=== PATIENT | male | born 1990 | race Caucasian/White ===

== ENCOUNTER 2019-04-15 16:54 | Emergency (ER) | payer OTHER ==
[~2019-04-15] VITALS: Ht 172.7 cm; Wt 75.7 kg
[2019-04-15 16:58] VITALS: BP_SYST 112
--- NOTE | 2019-04-15 17:07 | NUR ---
Patient to ER bed 3 to gown for evaluation. Side rails up. Report given to STORM Ying.
--- NOTE | 2019-04-15 17:13 | NUR ---
PATIENT PRESENTS TO THE ER WITH HX OF SWELLING TO PENIS WITH FETID DISCHARGE FOR THREE YEARS; NO TRAUMA, NO OTHER REMARKABLE S/S
[2019-04-15] MEDS ORDERED: AZITHROMYCIN 250 MG TABLET PO ONE (17:15)
[2019-04-15] MEDS ORDERED: cefTRIAXone 1 GM in LIDOCAINE 1%, 20 ML MDV 2.1 ML IM ONE (17:15)
[2019-04-15 17:29] LABS: BILIRUBIN,URINE NEGATIVE (NEGATIVE); BLOOD, URINE NEGATIVE (NEGATIVE); CLARITY/URINE CLEAR (CLEAR); COLOR,URINE YELLOW (YELLOW); GLUCOSE,URINE NEGATIVE (NEGATIVE); KETONES,URINE NEGATIVE (NEGATIVE); LEUKOCYTE ESTERASE ,URINE NEGATIVE (NEGATIVE); NITRITE, URINE NEGATIVE (NEGATIVE); PH,URINE 6.5 (5.0-8.0); PROTEIN URINE NEGATIVE (NEGATIVE); UROBILINOGEN,URINE 0.2 (0.2-1.0)
--- NOTE | 2019-04-15 18:20 | NUR ---
REASSESSMENT; PATIENT REMAINS SEDATE AND ASYMPTOMATIC; DISCHARGE PENDING
--- NOTE | 2019-04-15 18:30 | NUR ---
REASSESSMENT BY ERMD; ACI GIVEN AND PATIENT INDICATED FULL UNDERSTANDING; DISCHARGED AMBULATORY; UNCHANGED
[2019-04-16 09:28] VITALS: BP_SYST 113
[2019-04-17 23:12] LABS: CHLAMYDIA TRACHOMATIS NAA Negative (Negative); NEISSERIA GONORRHOEAE NAA Negative (Negative)
== END 2019-04-15 18:30 | disposition home or self-care (01) ==
LOC: SED 16:54
DX: N48.1 Balanitis (principal); N43.3 Hydrocele, unspecified; Z11.3 Encounter for screening for infections with a predominantly sexual mode of transmission
CPT/HCPCS: 36415; 76870; 81003; 86592; 87491; 87591; 96372; 99284; J0696; J2001; Q0144